=== PATIENT | female | born 1950 | race Two or more races ===

== ENCOUNTER 2019-02-27 09:29 | Emergency (ER) | payer MEDICARE, MEDICAID ==
[~2019-02-27] VITALS: Ht 152.4 cm; Wt 55.8 kg
--- NOTE | 2019-02-27 09:50 | NUR ---
patient eloise from [facility] office, c/o nausea and vomiting with diarrhea x 1 week. On room air, breathing evenly and unlabored. connected to the monitor and pulse ox. kept comfortable, will continue to monitor accordingly. Daughter in law at bedside.
[2019-02-27] MEDS ORDERED: ONDANSETRON HCL/PF 4 MG/2 ML VIAL ONE ×2 (09:57→11:03)
[2019-02-27] MEDS: ONDANSETRON HCL/PF 4 MG/2 ML VIAL IVP ONE ×2 (10:00→11:00)
[2019-02-27] MEDS: IV NS 0.9% 1,000 ML BAG IV ONE ×2 (10:00→11:00)
[2019-02-27 10:02] LABS: BASOPHILS # (AUTO) 0.1 /CMM (0.0-0.2); BASOPHILS % (AUTO) 0.6 % (0.0-2.0); EOSINOPHILS % (AUTO) 0.1 % (0.0-6.0); HEMATOCRIT 34 % (33-45); HEMOGLOBIN 11.4 g/dL (11.5-14.8); LYMPHOCYTES # (AUTO) 0.9 /CMM (0.8-4.8); LYMPHOCYTES % (AUTO) 7.6 % (20.0-44.0); MEAN CORPUSCULAR HGB CONC 33 g/dl (31.0-36.0); MEAN CORPUSCULAR VOLUME 85 fL (82-100); MONOCYTES # (AUTO) 0.4 /CMM (0.1-1.30); MONOCYTES % (AUTO) 3.7 % (2.0-12.0); NEUTROPHILS # (AUTO) 10.6 /CMM (1.8-8.9); PLATELET COUNT (AUTO) 252 /CMM (150-450); RED BLOOD CELL COUNT(AUTO) 4.04 MIL/uL (4.0-5.2)
[2019-02-27 10:08] LABS: CALCIUM, SERUM 9.1 mg/dL (8.5-10.1); CREATININE 1.2 mg/dL (0.6-1.3); POTASSIUM 3.7 mmol/L (3.5-5.1)
[2019-02-27] MEDS ORDERED: MORPHINE SULFATE INJ 2 MG/ML DISP.SYRIN ONE (11:09)
[2019-02-27] MEDS: MORPHINE SULFATE INJ 2 MG/ML DISP.SYRIN IV ONE (11:11)
--- NOTE | 2019-02-27 13:33 | NUR ---
[facility] PAGED DR SANDOVAL
[2019-02-27] MEDS ORDERED: BRIM5DRO5 RIGHTEYE (13:44)
[2019-02-27] MEDS ORDERED: GLIP5TAB26 PO (13:44)
[2019-02-27] MEDS ORDERED: TIMO5DRO18 RIGHTEYE (13:44)
[2019-02-27] MEDS ORDERED: LISI-603 PO (13:44)
[2019-02-27] MEDS ORDERED: SITA1TAB2 PO (13:44)
[2019-02-27] MEDS ORDERED: PRED5DRO16 RIGHTEYE (13:44)
[2019-02-27] MEDS ORDERED: MOXI3DRO13 RIGHTEYE (13:44)
[2019-02-27] MEDS ORDERED: ATRO2DRO4 RIGHTEYE (13:44)
[2019-02-27 14:13] VITALS: BP 109/69
--- NOTE | 2019-02-27 14:15 | NUR ---
Patient discharged to home in stable condition. Written and verbal after care instructions given. Patient verbalizes understanding of instruction.IV removed. Catheter intact and site benign. Pressure and 4x4 applied to site. No bleeding noted.
== END 2019-02-27 14:15 | disposition home or self-care (01) ==
LOC: ER 09:34
DX: E86.0 Dehydration (principal); R11.2 Nausea with vomiting, unspecified; E11.9 Type 2 diabetes mellitus without complications
CPT/HCPCS: 36415; 80048; 85025; 96361; 96374; 96375; 96376; 99283; J2270; J2405 ×2; J7030 ×2